=== PATIENT | female | born 1935 | race Caucasian/White ===

== ENCOUNTER 2020-10-14 17:20 | Emergency (ER) | payer OTHER, BC ==
[2020-10-14 17:43] VITALS: BP 175/93; PULSE 83; TEMP 99.1; BMI 29.9
[2020-10-14 18:49] LABS: BASO % 1.3 % (0-2.0); EOS % 2.2 % (0-4.5); HEMATOCRIT 40.7 % (32.4-45.2); HEMOGLOBIN 13.3 GM/dl (10.7-15.3); LYMPH % 11.9 % (8-40); MCH 30.3 pg (25.7-33.7); MCHC 32.7 g/dl (32.0-36.0); MEAN CELL VOLUME 92.6 fl (80-96); MEAN PLT VOLUME 8.4 fl (7.5-11.1); MONO % 6.4 % (3.8-10.2); NEUT % 78.2 % (42.8-82.8); PLATELET COUNT 334 K/MM3 (134-434); RBC 4.39 M/mm3 (3.60-5.2); RDW 13.1 % (11.6-15.6); WHITE BLOOD COUNT 10.2 K/mm3 (4.0-10.8)
[2020-10-14 18:55] LABS: EPITHELIAL CELLS RARE /hpf
[2020-10-14 19:00] LABS: ACTIVATED PTT 59.4 SECONDS (25.2-36.5); ALBUMIN 4.1 g/dl (3.4-5.0); BILIRUBIN,TOTAL 0.9 mg/dl (0.2-1); CREATININE 0.7 mg/dl (0.55-1.3); POTASSIUM 3.3 mmol/L (3.5-5.1); TOT PROT 7.4 g/dl (6.4-8.2)
[2020-10-14 19:05] LABS: INR 2.04 (0.82-1.09); PROTHROMBIN TIME (PATIENT) 21.8 SEC (10.2-13.0)
== END 2020-10-14 19:20 | disposition home or self-care (01) ==
LOC: FER 17:20
DX: K92.1 Melena (principal)
CPT/HCPCS: 36415; 80053; 81003; 81015; 82272; 85025; 85610; 85730; 86850; 86900; 86901; 87086; 87186; 99284-25